=== PATIENT | male | born 1990 | race Caucasian/White ===

== ENCOUNTER 2020-04-14 19:37 | Emergency (ER) | payer SELFPAY ==
[2020-04-14] MEDS ORDERED: Tamsulosin 0.4 MG Cap.ER PO STA (20:24)
[2020-04-14] MEDS ORDERED: HYDROmorphone 1 MG/ML Syringe IVPUSH STA (20:24)
[2020-04-14] MEDS ORDERED: Ondansetron 4 MG/2 ML SDV IVPUSH ONE (20:24)
[2020-04-14] MEDS ORDERED: Ketorolac 30 MG/ML SDV IVPUSH STA (20:25)
--- NOTE | 2020-04-14 20:29 | EDM.PDOC ---
ED HPI GENERAL MEDICAL PROBLEM - General Chief Complaint: Flank Pain Stated Complaint: SIDE PAIN Time Seen by Provider: 04/14/20 20:07 Source of Information: Reports: Patient History Limitations: Reports: No Limitations - History of Present Illness INITIAL COMMENTS - FREE TEXT/NARRATIVE: Mr. Smith is a very pleasant 30-year-old gentleman who now presents the ED stating that he developed left flank pain, crampy in character, that radiates around to his left lower quadrant. The pain has been constant, although progressively been getting worse over the course of the day. He has had increased urinary frequency, although no dysuria or gross hematuria. He states that he vomited once, about 30 minutes prior to arrival to the ED, although denies any diarrhea. No prior similar symptoms. The patient states that he took 1500 mg of acetaminophen a few hours ago, which did not help his symptoms. Here in the ED, the patient's initial BP is found to be elevated at 151/95, otherwise, he is hemodynamically stable, afebrile, saturating 95% on room air. He states that his pain has somewhat improved now that he is here in the ED. Other than the above symptoms, the patient denies recent fever, chills, sore throat, ear pain, nasal or sinus congestion, cough, dyspnea, chest pain, palpitations, nausea, constipation, diarrhea, abdominal pain, urinary symptoms, recent weight gain or weight loss, recent bloody bowel movements or black bowel movements, recent joint aches, headaches, or rashes. The patient does not have a PCP. Left Abdomen Pain Score (Numeric/FACES): 5 - Related Data Allergies Allergy/AdvReac Type Severity Reaction Status Date / Time No Known Allergies Allergy Verified 04/14/20 20:08 Home Meds: Home Meds Acetaminophen/HYDROcodone [[place] Timber 325-5 MG] 1 - 2 tab PO Q6H PRN #20 tablet 04/14/20 [Rx] Ondansetron [Zofran ODT] 1 tab PO Q8H PRN #10 tab.dis 04/14/20 [Rx] Tamsulosin HCl [Flomax] 1 cap PO QPM PRN #10 cap.er.24h 04/14/20 [Rx] Past Medical History Cardiovascular History: Reports: Blood Clots/VTE/DVT (LLE) - Past Surgical History HEENT Surgical History: Reports: Oral Surgery (wisdom teeth extraction at 22 yrs old) Social & Family History - Tobacco Use Smoking Status *Q: Never Smoker - Caffeine Use Caffeine Use: Reports: None - Alcohol Use Alcohol Use History: Yes Alcohol Use Frequency: Socially - Recreational Drug Use Recreational Drug Use: Yes Drug Use in Last 12 Months: Yes Recreational Drug Type: Reports: Marijuana/Hashish (smokes daily, 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 ED EXAM, RENAL/ - Physical Exam Exam: See Below Exam Limited By: No Limitations General Appearance: Alert, WD/WN, No Apparent Distress Eye Exam: Bilateral Eye: EOMI, Normal Inspection Ears: Normal External Exam, Hearing Grossly Normal Nose: Normal Inspection Throat/Mouth: Normal Inspection, Normal Lips, Normal Voice, No Airway Compromise Head: Atraumatic, Normocephalic Neck: Normal Inspection, Full Range of Motion Respiratory/Chest: No Respiratory Distress, Lungs Clear, Normal Breath Sounds, No Accessory Muscle Use Cardiovascular: Normal Peripheral Pulses, Regular Rate, Rhythm, No Edema, No Gallop, No JVD, No Murmur, No Rub GI/Abdominal: Normal Bowel Sounds, Soft, Non-Tender (including the LLQ), No Organomegaly, No Distention, No Abnormal Bruit, No Mass (Male) Exam: Deferred Rectal (Males) Exam: Deferred Back Exam: Normal Inspection, Full Range of Motion, CVA Tenderness (L). No: CVA Tenderness (R) Extremities: Normal Inspection, Normal Range of Motion, No Pedal Edema, Normal Capillary Refill Neurological: Alert, Oriented, Normal Cognition, No Motor/Sensory Deficits Psychiatric: Normal Affect Skin Exam: Warm, Dry, Intact, Normal Color, No Rash Course - Vital Signs Last Recorded V/S: Last Vital Signs Temp 36.3 C 04/14/20 21:37 Pulse 68 04/14/20 22:14 Resp 20 04/14/20 22:14 BP 126/65 04/14/20 22:14 Pulse Ox 99 04/14/20 22:14 - Orders/Labs/Meds Orders: Active Orders 24 hr Category Date Time Status Sodium Chloride 0.9% [Normal Saline] 1,000 ml Med 04/14/20 20:30 Active IV ASDIRECTED Medication Orders Sodium Chloride (Normal Saline) 1,000 mls @ 150 mls/hr IV ASDIRECTED MARY Last Admin: 04/14/20 20:51 Dose: 150 mls/hr Documented by: MERYL Labs: Laboratory Tests 04/14/20 Range/Units 20:12 Urine Color Yellow (Yellow) Urine Appearance Clear (Clear) Urine pH 6.0 (5.0-8.0) Ur Specific [place] > or = 1.030 (1.005-1.030) Urine Protein Negative (Negative) Urine Glucose (UA) Negative (Negative) Urine Ketones Negative (Negative) Urine Occult Blood 2+ H (Negative) Urine Nitrite Negative (Negative) Urine Bilirubin Negative (Negative) Urine Urobilinogen 0.2 (0.2-1.0) Ur Leukocyte Esterase Negative (Negative) Urine RBC 20-30 H (0-5) /hpf Urine WBC Not seen (0-5) /hpf Ur Epithelial Cells Not seen (0-5) /hpf Urine Bacteria Few (FEW) /hpf Urine Mucus Many H (FEW) /hpf Meds: Medications Generic Name Dose Route Start Last Admin Trade Name Freq PRN Reason Stop Dose Admin Sodium Chloride 1,000 mls @ 150 mls/hr 04/14/20 20:30 04/14/20 20:51 Normal Saline IV 150 mls/hr ASDIRECTED MARY Administration Discontinued Medications Generic Name Dose Route Start Last Admin Trade Name Freq PRN Reason Stop Dose Admin Hydromorphone HCl 0.5 mg 04/14/20 20:24 04/14/20 20:58 Dilaudid IVPUSH 04/14/20 20:25 0.5 mg ONETIME STA Administration Ketorolac Tromethamine 30 mg 04/14/20 20:25 04/14/20 20:55 Toradol IVPUSH 04/14/20 20:26 30 mg ONETIME STA Administration Ondansetron HCl 4 mg 04/14/20 20:24 04/14/20 20:52 Zofran IVPUSH 04/14/20 20:25 4 mg ONETIME ONE Administration Tamsulosin HCl 0.4 mg 04/14/20 20:24 04/14/20 20:51 Flomax PO 04/14/20 20:25 0.4 mg ONETIME STA Administration - Re-Assessments/Exams Free Text/Narrative Re-Assessment/Exam: 04/14/20 20:26 As above, the patient developed left flank pain that radiates around to his left lower quadrant, around 14:00 today. He vomited once, and he reports increased urinary frequency, although no dysuria. He has left CVA tenderness, but no abdominal tenderness. His history and physical exam are most consistent with a left ureterolith. I have ordered a work-up that includes a urinalysis and a CT scan of the abdomen and pelvis without contrast. In the meantime, the patient requested only "a little" pain relief, therefore I have ordered Dilaudid 0.5 mg IVP, along with 30 mg of IV Toradol, 4 mg of IV Zofran, 0.4 mg of oral Flomax, and IV fluid. 04/14/20 21:53 The patient's urinalysis is remarkable for 2+ occult blood with 20-30 RBCs, leukocyte esterase negative with no WBCs, nitrate negative with few bacteria, and no squamous epithelial cells. 04/14/20 22:44 CT of the abdomen and pelvis without contrast as read by Dr. Viramontes as: 1. 1 or 2 nonobstructing calculi located at the UPJ within the left kidney measuring about 7 mm in size. These appears [sic] to be obstructing as the proximal collecting system is mildly dilated. Urology consultation could be considered as a stent may be needed for further management of these calculi. 2. No additional abnormality is appreciated on this noncontrast CT study of the abdomen and pelvis. 04/14/20 22:55 Test results discussed with the patient. As above, the patient has a large stone at the left UPJ causing obstruction. I am recommending that he take [id number] ibuprofen on a regular basis, and I will prescribe Big Timber as needed for discomfort, along with Flomax and Zofran. I will refer him to a urologist in [place], and he will be discharged home with a CD-ROM of his CT images. Departure - Departure Time of Disposition: 22:57 Disposition: Home, Self-Care 01 Condition: Good Clinical Impression: Ureterolithiasis - Discharge Information *PRESCRIPTION DRUG MONITORING PROGRAM REVIEWED*: Not Applicable *COPY OF PRESCRIPTION DRUG MONITORING REPORT IN PATIENT CARMELITA: Not Applicable Prescriptions: Tamsulosin HCl [Flomax] 1 cap PO QPM PRN #10 cap.er.24h PRN Reason: Pain Acetaminophen/HYDROcodone [[place] 325-5 MG] 1 - 2 tab PO Q6H PRN #20 tablet PRN Reason: Pain (Severe 7-10) Ondansetron [Zofran ODT] 1 tab PO Q8H PRN #10 tab.dis PRN Reason: Nausea/Vomiting Referrals: PCP,None [Primary Care Provider] - Arun Wills MD [Ordering Only Provider] - Forms: ED Department Discharge Additional Instructions: You were seen in the emergency room for left flank pain radiating around to your lower left abdomen. Work-up in the ER included a urinalysis and a CT scan of your abdomen and pelvis without contrast. Your urinalysis showed blood, which is expected with a kidney stone, but was otherwise unremarkable. The CT scan confirmed that you have a large stone at your upper left ureter. We recommend that you take [id number] ibuprofen, 3 tablets (600 mg) every 8 hours, with food, [id number], as needed for discomfort. In addition to ibuprofen, you have been prescribed the opioid pain reliever Big Timber. You may take 1 to 2 tablets of [place] up to every 6 hours, as needed for pain not relieved by ibuprofen. If you take Big Timber, do not drive or operate heavy machinery for 12 hours afterwards. Big Timber may cause constipation, so consider taking a stool softener. We also recommend you take 1 tablet of the anti-spasm medicine Flomax every evening, starting tomorrow evening, 04/15/2020, as prescribed. You may dissolve 1 tablet of the anti-nausea medicine Zofran on your tongue up to every 8 hours, as needed for nausea/vomiting. Stay adequately hydrated. It does not really matter what type of fluid you drink. You need to follow-up with a Urologist at the next available appointment. Con tact the office of Dr. Arun Wills, in [place], or a Urologist out of [facility], at the next available appointment. You have been provided with a CD-ROM of your CT images. Please take the CD-ROM with you to your Urology appointment. If any other problems, please do not hesitate to return to the ER. Sepsis Event Note (ED) - Evaluation Sepsis Screening Result: No Definite Risk - Focused Exam Vital Signs: Vital Signs Temp Pulse Resp BP Pulse Ox 04/14/20 22:14 68 20 126/65 99 04/14/20 21:37 36.3 C 60 18 131/63 97 04/14/20 20:01 36.6 C 65 16 151/95 H 95 - My Orders Last 24 Hours: My Active Orders 04/14/20 20:30 Sodium Chloride 0.9% [Normal Saline] 1,000 ml IV ASDIRECTED - Assessment/Plan Last 24 Hours: My Active Orders 04/14/20 20:30 Sodium Chloride 0.9% [Normal Saline] 1,000 ml IV ASDIRECTED
[2020-04-14] MEDS ORDERED: Sodium Chloride 0.9% 1,000 ML IV SCH (20:30)
--- NOTE | 2020-04-14 21:34 | CT ---
CT abdomen and pelvis Technique: Multiple axial sections were obtained from above the dome of the diaphragm inferiorly through the pubic symphysis. Intravenous contrast and oral contrast not utilized. Study has been performed as a ureteral stone protocol. Findings: 1 or 2 adjacent calculi are identified within the distal renal pelvis most likely at the UPJ. These calculi measure around 7 mm in size. Calculi most likely are causing slight obstruction as there is mild inflammatory type change around the left kidney as well as slightly dilated proximal collecting system. No other abnormal calcifications are seen within the kidneys. No ureteral dilatation or ureteral stone is seen. Other findings: Visualized lung bases show nothing acute. Noncontrast appearance of the liver and spleen shows no focal abnormality. Adrenal glands show no nodule. Pancreas appears within normal limits. Gallbladder contains no calcified gallstones. Aorta shows no aneurysm. No retroperitoneal adenopathy or mesenteric abnormalities are seen. The appendix is seen and is normal. No pelvic mass or adenopathy is seen. No free fluid is seen. No other inflammatory change is appreciated. Bone window settings were reviewed which appear within normal limits for the patient's age. Impression: 1. 1 or 2 nonobstructing calculi located at the UPJ within the left kidney measuring around 7 mm in size. These appears to be obstructing as the proximal collecting system is mildly dilated. Urology consultation could be considered as a stent may be needed for further management of these calculi. 2. No additional abnormality is appreciated on this noncontrast CT study of the abdomen and pelvis. Diagnostic code #3 This report was dictated in MDT
== END 2020-04-14 23:25 | disposition home or self-care (01) ==
LOC: JD.ED 19:37
DX: N20.1 Calculus of ureter (principal)
CPT/HCPCS: 74176; 81001; 96361; 96374; 96375; 99284; A9270; J1170; J1885; J2405; J7030; 99283